=== PATIENT | female | born 1985 | race Caucasian/White ===

== ENCOUNTER 2016-12-18 12:03 | Emergency (ER) ==
[2016-12-18 12:04] VITALS: BMI 23.6
[2016-12-18 12:17] VITALS: TEMP 97
--- NOTE | 2016-12-18 12:23 | ED.PDOC ---
General ED Provider: Dr. OC APONTE JR Chief Complaint: Tooth Problem Stated Complaint: WOKE UP THIS MORNING WITH RIGHT LOWER JAW PAIN.[ End ]1030 97.0 v84 20 97% 145/92 10/10 SALT WATER. DID NOT HELP. GUM PAIN[End]RIGHT LOWER GUM PAIN[End] Time Seen by Physician: 12:21 Mode of Arrival: Walk-In Information Source: Patient Exam Limitations: No limitations Primary Care Provider: DERIK WONG Nursing and Triage Documentation Reviewed and Agree: No Review of Systems - Review Of Systems Constitutional: Reports: No symptoms Eyes: Reports: No symptoms Ears, Nose, Mouth, Throat: Reports: Mouth pain (lower jaw buccal side at right incisorsand lateral2-3 teeth) Respiratory: Reports: No symptoms Cardiac: Reports: No symptoms GI: Reports: No symptoms : Reports: No symptoms Musculoskeletal: Reports: No symptoms Skin: Reports: No symptoms Neurological: Reports: No symptoms Endocrine: Reports: No symptoms Hematologic/Lymphatic: Reports: No symptoms All Other Systems: Other Past Medical History - Past Medical History Endocrine: Reports: None Cardiovascular: Reports: None Respiratory: Reports: None Hematological: Reports: None Gastrointestinal: Reports: None Genitourinary: Reports: None Neuro/Psych: Reports: Depression Musculoskeletal: Reports: None Cancer: Reports: None Last Menstrual Period: 11/08 - Surgical History General Surgical History: Reports: Appendectomy (APPENDECTOMY 1995) - Family History Family History: Reports: Unknown - Social History Smoking Status: Current some day smoker Hx Substance Use: No Alcohol Screening: Occasionally - Immunizations Tetanus Shot up to Date: Yes Physical Exam - Physical Exam Appearance: Well-appearing, Thin Pain Distress: Moderate Eyes: CORTNEY, EOMI, Conjunctiva clear ENT: Ears normal, Nose normal, Erythema, Exudate Neck: Supple Respiratory: Airway patent, Breath sounds clear, Breath sounds equal, Respirations nonlabored Cardiovascular: RRR, Pulses normal, No rub, No murmur GI/: Soft, Nontender, No masses, Bowel sounds normal, No Organomegaly Musculoskeletal: Normal strength, ROM intact, No edema, No calf tenderness Skin: Warm, Dry, Normal color Neurological: Sensation intact, Motor intact, Reflexes intact, Cranial nerves intact, Alert, Oriented Psychiatric: Affect appropriate, Mood appropriate Critical Care Note - Critical Care Note Total Time (mins): 0 Course - Course Vital Signs: Temp Pulse Resp BP Pulse Ox 12/18/16 12:04 97.0 F L 84 20 145/92 H 97 Departure - Departure Time of Disposition: 12:28 Disposition: HOME SELF-CARE Discharge Problem: Toothache, Gingivitis due to dental plaque Instructions: Toothache (ED), Gingivitis (ED) Condition: Fair Pt referred to PMD for follow-up: Yes Additional Instructions: follow up with dentist as soon as possible teeth need professional cleaning dental floss may help Pennicillin antibiotic for infection Naprosyn for pain Blood pressure is elevated would have rechecked when pain is improved Prescriptions: Naproxen [Naprosyn] 500 mg PO Q12HR PRN #30 tablet PRN Reason: PAIN Penicillin V Potassium 500 mg PO QID #28 tablet Allergies/Adverse Reactions: Allergies No Known Drug Allergies Allergy (Unverified 11/26/16 10:58) Home Medications: Ambulatory Orders Sertraline HCl [Zoloft] 20 mg PO BID 11/26/16 Naproxen [Naprosyn] 500 mg PO Q12HR PRN #30 tablet 12/18/16 Penicillin V Potassium 500 mg PO QID #28 tablet 12/18/16
[2016-12-18] MEDS ORDERED: PHENERGAN 25 MG/ML VIAL IM STA (12:27)
[2016-12-18] MEDS ORDERED: TORADOL IM STA (12:27)
[2016-12-18 12:49] VITALS: BP 153/93
== END 2016-12-18 12:52 | disposition home or self-care (01) ==
LOC: ED 12:03
DX: K08.89 Other specified disorders of teeth and supporting structures (principal); K05.10 Chronic gingivitis, plaque induced; F17.210 Nicotine dependence, cigarettes, uncomplicated
CPT/HCPCS: 96372; 99282

== ENCOUNTER 2017-03-21 01:34 | Emergency (ER) ==
[2017-03-21 01:51] VITALS: BP 136/81; TEMP 99; BMI 22.4
--- NOTE | 2017-03-21 02:51 | DI ---
EXAM: Left foot, three views, 03/21/2017 HISTORY: Foot injury COMPARISON: None. FINDINGS / IMPRESSION: Normal anatomic alignment is maintained. Obliquely oriented lucency is pres ent at the distal aspect of the fifth metatarsal. Subtle cortical irregularity. This likely repres ents a grossly nondisplaced fracture site. The remaining visualized osseous structures appear intact.
--- NOTE | 2017-03-21 02:59 | ED.PDOC ---
General ED Provider: Dr. CONSUELO BUCK-ER Chief Complaint: Foot Pain/Injury Stated Complaint: i fell and hurt my foot Time Seen by Physician: 01:40 Mode of Arrival: Walk-In Information Source: Patient Exam Limitations: No limitations Primary Care Provider: DERIK WONG Nursing and Triage Documentation Reviewed and Agree: Yes Musculoskeletal Complaint Exam - Ankle/Foot Complaint/Exam Location of Injury: Reports: Left, Foot Mechanism of Injury: Reports: Trauma Onset/Duration: 3 days Symptoms Are: Reports: Still present Onset of Pain: Reports: Immediate Initial Severity: Mild Current Severity: Mild Location: Reports: Discrete (left foot) Character: Reports: Dull, Aching, Throbbing Alleviating: Reports: None Aggravating: Reports: Movement, Weight bearing, Prolonged standing Able to Bear Weight: Yes Associated Signs and Symptoms: Reports: Swelling. Denies: Redness, Bruising, Fever, Weakness, Numbness, Tingling Gout Risk Factors: Reports: None Related Surgical History: Reports: Right Lower Extremity Findings: Present: Swelling, Ecchymosis, Abnormal contour Achilles Tendon Abnormality: No Tenderness: Present: Midfoot Differential Diagnosis: Closed Fracture, Sprain, Strain Review of Systems - Review Of Systems Constitutional: Reports: No symptoms Eyes: Reports: No symptoms Ears, Nose, Mouth, Throat: Reports: No symptoms Respiratory: Reports: No symptoms Cardiac: Reports: No symptoms GI: Reports: No symptoms : Reports: No symptoms Musculoskeletal: Reports: Joint pain, Joint swelling Skin: Reports: No symptoms Neurological: Reports: No symptoms Endocrine: Reports: No symptoms Hematologic/Lymphatic: Reports: No symptoms All Other Systems: Reviewed and Negative Past Medical History - Past Medical History Endocrine: Reports: None Cardiovascular: Reports: None Respiratory: Reports: None Hematological: Reports: None Gastrointestinal: Reports: None Genitourinary: Reports: None Neuro/Psych: Reports: Depression Musculoskeletal: Reports: None Cancer: Reports: None Last Menstrual Period: 3-4 WEEKS AGO, IS DUE TO HAVE - Surgical History General Surgical History: Reports: Appendectomy (APPENDECTOMY 1995) - Family History Family History: Reports: Unknown - Social History Smoking Status: Current every day smoker, Heavy tobacco smoker Hx Substance Use: No Alcohol Screening: Occasionally Lives: With family - Immunizations Tetanus Shot up to Date: Yes Physical Exam - Physical Exam Appearance: Well-appearing, No pain distress, Well-nourished Pain Distress: Mild Eyes: CORTNEY, EOMI, Conjunctiva clear ENT: Ears normal, Nose normal, Oropharynx normal Neck: Supple Respiratory: Airway patent, Breath sounds clear, Breath sounds equal, Respirations nonlabored Cardiovascular: RRR, Pulses normal, No rub, No murmur GI/: Soft, Nontender, No masses, Bowel sounds normal, No Organomegaly Musculoskeletal: Normal strength, ROM intact, No edema, No calf tenderness, Limited ROM Skin: Warm, Dry, Normal color Neurological: Sensation intact, Motor intact, Reflexes intact, Cranial nerves intact, Alert, Oriented Psychiatric: Affect appropriate, Mood appropriate Interpretation - Radiology Interpretation Radiology Interpretation By: Radiologist Radiology Results: Positive Critical Care Note - Critical Care Note Total Time (mins): 0 Course - Course Orders, Labs, Meds: Orders Category Date Time Status Cast shoe [ED SPLINT APPLICATION] .ONCE EMERGENCY 03/21/17 02:55 Active ED NORIS WRAP .ONCE EMERGENCY 03/21/17 02:55 Active ED CRUTCHES .ONCE EMERGENCY 03/21/17 02:55 Active FOOT, LEFT 3 VIEWS Stat RADS 03/21/17 01:59 Completed Vital Signs: Temp Pulse Resp BP Pulse Ox 03/21/17 01:35 99 F 106 H 18 136/81 99 Departure - Departure Time of Disposition: 02:59 Disposition: HOME SELF-CARE Discharge Problem: Metatarsal fracture Qualifiers: Encounter type: initial encounter Metatarsal bone: fifth Fracture type: closed Fracture alignment: nondisplaced Laterality: left Qualifier Code: (S92.355A) Nondisplaced fracture of fifth metatarsal bone, left foot, initial encounter for closed fracture Instructions: Foot Fracture in Adults (ED) Condition: Good Pt referred to PMD for follow-up: Yes Additional Instructions: use crutches--nonweightbearing---norco 5mg q 6hrs prn pain #15--f/u with ortho clinic on thursday Allergies/Adverse Reactions: Allergies No Known Drug Allergies Allergy (Verified 03/21/17 01:47) Home Medications: Ambulatory Orders Naproxen [Naprosyn] 500 mg PO Q12HR PRN #30 tablet 12/18/16 Disposition Discussed With: Patient
== END 2017-03-21 03:20 | disposition home or self-care (01) ==
LOC: ED 01:34
DX: S92.355A Nondisplaced fracture of fifth metatarsal bone, left foot, initial encounter for closed fracture (principal); W19.XXXA Unspecified fall, initial encounter; F17.210 Nicotine dependence, cigarettes, uncomplicated
CPT/HCPCS: 99283

== ENCOUNTER 2017-11-25 19:30 | Emergency (ER) ==
[2017-11-25 19:35] VITALS: BP 131/89; TEMP 99.2; BMI 23.8
--- NOTE | 2017-11-25 19:53 | ED.PDOC ---
General ED Provider: Dr. JUNE HOBSON Chief Complaint: Neck Pain Non-Injury Stated Complaint: 3 day history of jaw pain, Painful to eat. No sore throat. Time Seen by Physician: 19:55 Mode of Arrival: Walk-In Information Source: Patient Exam Limitations: No limitations Primary Care Provider: DERIK WONG Nursing and Triage Documentation Reviewed and Agree: Yes Reviewed sepsis parameters & appropriate labs ordered?: No (only pulse is elevated. ) System Inflammatory Response Syndrome: Pulse >90 BPM (Likely due to pain but no assiciated with SIRS since has normal RR and Temperature) Sepsis Protocol: For patient's 13 years and over: Temp is 96.8 and below OR 101 and greater Pulse >90 BPM Resp >20/minute Acutely Altered Mental Status Are patient's symptoms suggestive of a new infection, such as: -Pneumonia -Skin, Soft Tissue -Endocarditis -UTI -Bone, Joint Infection -Implantable Device -Acute Abdominal Infection -Wound Infection -Meningitis -Blood Stream Catheter Infection -Unknown EENT Complaint Exam - Dental/Oral Complaint/Exam Mechanism of Injury: No known trauma Onset/Duration: 3 days Symptoms Are: Still present Timing: Constant Initial Severity: Moderate Current Severity: Severe Location: Front teeth and chin Aggravating: Reports: Cold, Chewing Alleviating: Reports: None Associated Signs and Symptoms: Reports: Foul odor, Foul taste in mouth. Denies : Swelling, Discharge Related History: Reports: Similar episode (last year ) Cardiac Risk Factors: Reports: None Dental/Oral Surgical History: Reports: None Tooth Findings: Present: Gross decay, Gross caries, Abcess Cervical Lymphadenopathy Present: No Facial Swelling Present: Yes Bleeding Present: No Oropharynx Findings: Absent: Clots, Active bleeding Septal Hematoma: No Foreign Body Present: No Dysphagia Present: No Drooling Present: No Asymmetrical Tonsillar Swelling Present: No Uvula Midline: Yes Letitia-tonsillar Fluctuence: No Trismus Present: No Palatal Petechiae Present: No Scarlatinaform Rash Present: No Lesions: Absent: Lip, Gums, Tongue, Buccal Mucosa, Pharynx Exanthem: Absent: Lip, Gums, Tongue, Buccal Mucosa, Pharynx Vesicles: Absent: Lip, Gums, Tongue, Buccal Mucosa, Pharynx Teeth Picture: 1 - Gross decay Differential Diagnoses: Dental Abcess, Dental Caries Review of Systems - Review Of Systems Constitutional: Reports: No symptoms Eyes: Reports: No symptoms Ears, Nose, Mouth, Throat: Reports: Mouth pain, Loose teeth Respiratory: Reports: No symptoms Cardiac: Reports: No symptoms GI: Reports: No symptoms : Reports: No symptoms Musculoskeletal: Reports: No symptoms Skin: Reports: No symptoms Neurological: Reports: No symptoms Endocrine: Reports: No symptoms Hematologic/Lymphatic: Reports: No symptoms All Other Systems: Reviewed and Negative Past Medical History - Past Medical History Endocrine: Reports: None Cardiovascular: Reports: None Respiratory: Reports: None Hematological: Reports: None Gastrointestinal: Reports: None Genitourinary: Reports: None Neuro/Psych: Reports: Depression Musculoskeletal: Reports: None Cancer: Reports: None Last Menstrual Period: LAST MONTH - Surgical History General Surgical History: Reports: Appendectomy (APPENDECTOMY 1995) - Family History Family History: Reports: Unknown - Social History Smoking Status: Current every day smoker, Heavy tobacco smoker Hx Substance Use: No Alcohol Screening: Occasionally - Immunizations Tetanus Shot up to Date: Yes Physical Exam - Physical Exam Appearance: Ill-appearing Ill-appearing: Mild Pain Distress: Severe Eyes: CORTNEY, EOMI, Conjunctiva clear ENT: Ears normal, Nose normal, Oropharynx normal Neck: Supple Respiratory: Airway patent, Breath sounds clear, Breath sounds equal, Respirations nonlabored Cardiovascular: Tachycardia Neurological: Alert, Oriented Psychiatric: Anxious Critical Care Note - Critical Care Note Total Time (mins): 0 Course - Course Vital Signs: Temp Pulse Resp BP Pulse Ox 11/25/17 19:31 99.2 F 128 H 20 131/89 99 Departure - Departure Time of Disposition: 19:55 Disposition: HOME SELF-CARE Discharge Problem: Dental caries Instructions: Dental Caries (GEN) Condition: Fair Pt referred to PMD for follow-up: Yes Additional Instructions: Take medications as prescribed Follow up with your Dentist this week Prescriptions: Hydrocodone/Acetaminophen [Mcdonald 5-325 Tablet] 1 tab PO Q6HR PRN #12 tablet PRN Reason: PAIN Amoxicillin [Amoxil] 500 mg PO TID #30 capsule Ibuprofen [Motrin] 600 mg PO Q6H PRN #30 tablet PRN Reason: Analgesia Allergies/Adverse Reactions: Allergies No Known Drug Allergies Allergy (Verified 03/21/17 01:47) Home Medications: Ambulatory Orders Amoxicillin [Amoxil] 500 mg PO TID #30 capsule 11/25/17 Hydrocodone/Acetaminophen [Mcdonald 5-325 Tablet] 1 tab PO Q6HR PRN #12 tablet 02/07 Ibuprofen [Motrin] 600 mg PO Q6H PRN #30 tablet 11/25/17 Disposition Discussed With: Patient
== END 2017-11-25 20:00 | disposition home or self-care (01) ==
LOC: ED 19:30
DX: K02.7 Dental root caries (principal); F17.210 Nicotine dependence, cigarettes, uncomplicated
CPT/HCPCS: 99282

== ENCOUNTER 2018-05-01 13:05 | Emergency (ER) | payer OTHER ==
[2018-05-01 13:19] VITALS: BP 138/88; TEMP 97.8; BMI 22.9
--- NOTE | 2018-05-01 13:37 | ED.PDOC ---
General ED Provider: Dr. CONSUELO RENE Chief Complaint: Toe Pain/Injury Stated Complaint: CC: Pain Lt Foot-2nd toe pain. HPI: Got up out of bed night and stubbed her Rt Foot and 2nd toe.Resulted in severe pain. No deformity noted. Ambulates but is painful. Previous injury Lt foot last year. Denies other complaints. Time Seen by Physician: 13:15 Mode of Arrival: Walk-In Information Source: Patient Exam Limitations: No limitations Primary Care Provider: DERIK WONG Nursing and Triage Documentation Reviewed and Agree: Yes Reviewed sepsis parameters & appropriate labs ordered?: Yes System Inflammatory Response Syndrome: Not Applicable Sepsis Protocol: For patient's 13 years and over: Temp is 96.8 and below OR 101 and greater Pulse >90 BPM Resp >20/minute Acutely Altered Mental Status Are patient's symptoms suggestive of a new infection, such as: -Pneumonia -Skin, Soft Tissue -Endocarditis -UTI -Bone, Joint Infection -Implantable Device -Acute Abdominal Infection -Wound Infection -Meningitis -Blood Stream Catheter Infection -Unknown Musculoskeletal Complaint Exam - Ankle/Foot Complaint/Exam Location of Injury: Reports: Toe #2, Toe #3 Mechanism of Injury: Reports: Trauma Onset/Duration: Earlier this morning Symptoms Are: Reports: Still present Onset of Pain: Reports: Immediate Initial Severity: Severe Current Severity: Moderate Location: Reports: Discrete Character: Reports: Sharp, Aching, Throbbing Alleviating: Reports: Rest Aggravating: Reports: Movement Able to Bear Weight: Yes Associated Signs and Symptoms: Reports: Bruising Gout Risk Factors: Reports: None Lower Extremity Findings: Present: Ecchymosis (over MTP joint 2nd-4th ) Review of Systems - Review Of Systems Constitutional: Reports: No symptoms Eyes: Reports: No symptoms Ears, Nose, Mouth, Throat: Reports: No symptoms Respiratory: Reports: No symptoms Cardiac: Reports: No symptoms GI: Reports: No symptoms : Reports: No symptoms Musculoskeletal: Reports: No symptoms, Joint pain Skin: Reports: No symptoms Neurological: Reports: No symptoms Endocrine: Reports: No symptoms Hematologic/Lymphatic: Reports: No symptoms All Other Systems: Reviewed and Negative Past Medical History - Past Medical History Previously Healthy: Yes Endocrine: Reports: None Cardiovascular: Reports: None Respiratory: Reports: None Hematological: Reports: None Gastrointestinal: Reports: None Genitourinary: Reports: None Neuro/Psych: Reports: Depression Musculoskeletal: Reports: None, Joint Pain Cancer: Reports: None Last Menstrual Period: on - Surgical History General Surgical History: Reports: Appendectomy (APPENDECTOMY 1995) - Family History Family History: Reports: Unknown - Social History Smoking Status: Current every day smoker Hx Substance Use: No Alcohol Screening: None - Immunizations Tetanus Shot up to Date: Yes Physical Exam - Physical Exam Appearance: Well-appearing, Well-nourished, Thin Ill-appearing: None Pain Distress: Moderate Eyes: CORTNEY, EOMI, Conjunctiva clear ENT: Ears normal, Nose normal, Oropharynx normal Respiratory: Airway patent, Breath sounds clear, Breath sounds equal, Respirations nonlabored Cardiovascular: RRR, Pulses normal, No rub, No murmur GI/: Soft, Nontender, No masses, Bowel sounds normal, No Organomegaly Musculoskeletal: Normal strength, ROM intact (painful movement of 2nd and 3rd toes . Ecchymoses over the involved toes. Ankle wnl), No edema, No calf tenderness Skin: Warm, Dry, Normal color Neurological: Sensation intact, Motor intact, Reflexes intact, Cranial nerves intact, Alert, Oriented Psychiatric: Affect appropriate, Mood appropriate Critical Care Note - Critical Care Note Total Time (mins): 0 Course - Course Orders, Labs, Meds: Orders Category Date Time Status Splint [ED SPLINT APPLICATION] .ONCE EMERGENCY 05/01/18 14:28 Active Ketorolac Tromethamine [Toradol] MEDS 05/01/18 14:05 Discontinued 30 mg IM ONCE STA FOOT, RIGHT 3 VIEWS Stat RADS 05/01/18 13:36 Taken Medications Discontinued Medications Generic Name Dose Route Start Last Admin Trade Name Julieta PRN Reason Stop Dose Admin Ketorolac Tromethamine 30 mg 05/01/18 14:05 05/01/18 14:11 Toradol IM 05/01/18 14:06 30 mg ONCE STA Administration Vital Signs: Temp Pulse Resp BP Pulse Ox 05/01/18 13:07 97.8 F 94 H 20 138/88 97 Departure - Departure Time of Disposition: 14:00 Disposition: HOME SELF-CARE Discharge Problem: Contusion of second toe of right foot Instructions: Foot Contusion (ED) Condition: Good Pt referred to PMD for follow-up: Yes (pcp) IPMP verified?: No Additional Instructions: Budddy splint Ice , Elevate, Pain meds as directed return if worsens Follow up pcp next week Allergies/Adverse Reactions: Allergies No Known Drug Allergies Allergy (Verified 03/21/17 01:47) Home Medications: Ambulatory Orders Ibuprofen 600 mg PO QID #20 tablet 05/01/18 Disposition Discussed With: Patient, Family
[2018-05-01] MEDS ORDERED: TORADOL IM STA (14:05)
--- NOTE | 2018-05-02 20:31 | DI ---
EXAM: Three views of the right foot HISTORY: Pain after trauma. COMPARISON: None FINDINGS: There is no cortical irregularity or displaced fracture of the right foot. There is no lyt ic or blastic lesion. The joint spaces are maintained. The arch is maintained. The limited views of the ankle are normal. IMPRESSION: No acute abnormality of the right foot.
== END 2018-05-01 14:50 | disposition home or self-care (01) ==
LOC: ED 13:05
DX: S90.121A Contusion of right lesser toe(s) without damage to nail, initial encounter (principal); W22.8XXA Striking against or struck by other objects, initial encounter; F17.210 Nicotine dependence, cigarettes, uncomplicated
CPT/HCPCS: 96372; 99282

== ENCOUNTER 2018-05-10 15:26 | Outpatient (CLI) | END 2018-05-10 15:27 | disposition home or self-care (01) | LOC: LAB 15:26 | PROVIDERS: ATTEND Family Medicine | DX: Z00.00 Encounter for general adult medical examination without abnormal findings (principal); F31.9 Bipolar disorder, unspecified; R00.0 Tachycardia, unspecified; G56.01 Carpal tunnel syndrome, right upper limb | CPT/HCPCS: 36415; 80053; 81001; 84439; 84443; 85025 ==

== ENCOUNTER 2018-05-14 13:32 | Outpatient (CLI) ==
--- NOTE | 2018-05-14 15:07 | DI ---
EXAM: Three views of the right hand. History: Right hand pain. Comparison: Right hand radiograph 02/28/2016 Findings: No acute fracture or dislocation. No abnormal calcifications or radiopaque foreign bodies . Joint spaces are preserved. No erosive osseous changes. Stable benign sclerotic lesion within th e second metacarpal head and within distal phalanx of the fourth digit. Impression: No acute findings and no arthritis.
--- NOTE | 2018-05-14 15:09 | DI ---
EXAM: Three views of the left hand. History: Left hand pain. Comparison: Left hand radiograph 02/28/2016 Findings: No acute fracture or dislocation. No abnormal calcifications or radiopaque foreign bodies . Joint spaces are preserved. No erosive osseous changes. Impression: Unremarkable exam
--- NOTE | 2018-05-14 15:10 | DI ---
EXAM: Three views of the right toes History: Right toe pain. Comparison: Right foot radiograph 05/01/2018 Findings / impression: Seen only on the frontal projection there is a small ossific density involving the PIP joint of the second digit which could represent age indeterminate chip/avulsion fracture or small osteophytes. Correlate with point tenderness. No other abnormalities are seen.
== END 2018-05-14 13:33 | disposition home or self-care (01) ==
LOC: RAD 13:32
PROVIDERS: ATTEND Family Medicine
DX: M25.542 Pain in joints of left hand (principal); M25.541 Pain in joints of right hand; M79.676 Pain in unspecified toe(s)

== ENCOUNTER 2018-07-23 10:05 | Emergency (ER) ==
[2018-07-23 10:11] VITALS: BP 122/82; TEMP 97.7; BMI 23.1
--- NOTE | 2018-07-23 10:21 | ED.PDOC ---
General ED Provider: Dr. KEILA BERG Chief Complaint: Bite Stated Complaint: BEE/WASP STING ON PT'S BACK Time Seen by Physician: 10:10 (SEE) Mode of Arrival: Walk-In Information Source: Patient Exam Limitations: No limitations Primary Care Provider: DERIK WONG Nursing and Triage Documentation Reviewed and Agree: Yes Does patient meet sepsis criteria?: No If yes, has appropriate treatment been initiated?: No System Inflammatory Response Syndrome: Not Applicable (SEE PHOTOS, SEEN WITH LIZZY THORNTON RN AT ALL TIMES) Sepsis Protocol: For patient's 13 years and over: Temp is 96.8 and below OR 101 and greater Pulse >90 BPM Resp >20/minute Acutely Altered Mental Status Are patient's symptoms suggestive of a new infection, such as: -Pneumonia -Skin, Soft Tissue -Endocarditis -UTI -Bone, Joint Infection -Implantable Device -Acute Abdominal Infection -Wound Infection -Meningitis -Blood Stream Catheter Infection -Unknown Review of Systems - Review Of Systems Constitutional: Reports: No symptoms Eyes: Reports: No symptoms Ears, Nose, Mouth, Throat: Reports: No symptoms Respiratory: Reports: No symptoms Cardiac: Reports: No symptoms GI: Reports: No symptoms : Reports: No symptoms Musculoskeletal: Reports: No symptoms Skin: Reports: Other (SEE PHOTO) Neurological: Reports: No symptoms Endocrine: Reports: No symptoms Hematologic/Lymphatic: Reports: No symptoms All Other Systems: Reviewed and Negative Past Medical History - Past Medical History Previously Healthy: Yes Endocrine: Reports: None Cardiovascular: Reports: None Respiratory: Reports: None Hematological: Reports: None Gastrointestinal: Reports: None Genitourinary: Reports: None Neuro/Psych: Reports: Depression Musculoskeletal: Reports: None, Joint Pain Cancer: Reports: None Last Menstrual Period: now - Surgical History General Surgical History: Reports: Appendectomy (APPENDECTOMY 1995) - Family History Family History: Reports: Unknown - Social History Smoking Status: Current every day smoker, Light tobacco smoker Hx Substance Use: No Alcohol Screening: None - Immunizations Tetanus Shot up to Date: No Physical Exam - Physical Exam Appearance: Well-appearing, No pain distress, Well-nourished Eyes: CORTNEY, EOMI, Conjunctiva clear ENT: Ears normal, Nose normal, Oropharynx normal Respiratory: Airway patent, Breath sounds clear, Breath sounds equal, Respirations nonlabored Cardiovascular: RRR, Pulses normal, No rub, No murmur GI/: Soft, Nontender, No masses, Bowel sounds normal, No Organomegaly Musculoskeletal: Normal strength, ROM intact, No edema, No calf tenderness Skin: Warm, Dry (WASP STING BACK(SEE PHOTO)) Neurological: Sensation intact, Motor intact, Reflexes intact, Cranial nerves intact, Alert, Oriented Psychiatric: Affect appropriate, Mood appropriate Critical Care Note - Critical Care Note Total Time (mins): 0 Course - Course Vital Signs: Temp Pulse Resp BP Pulse Ox 07/23/18 10:05 97.7 F 86 16 122/82 97 Departure - Departure Time of Disposition: 10:22 Disposition: HOME SELF-CARE Discharge Problem: Bee sting Qualifiers: Encounter type: initial encounter Injury intent: undetermined intent Qualified Code(s): T63.444A - Toxic effect of venom of bees, undetermined, initial encounter Instructions: Insect Bite or Sting (ED) Condition: Good Pt referred to PMD for follow-up: Yes IPMP verified?: No Additional Instructions: Please call your Family Physician as soon as possible to schedule a follow-up appointment. Allergies/Adverse Reactions: Allergies No Known Drug Allergies Allergy (Verified 07/23/18 10:12) Home Medications: Ambulatory Orders 1 [Unobtainable] 07/23/18 Disposition Discussed With: Patient, Family
[2018-07-23] MEDS ORDERED: PREDNISONE PO STA (10:24)
[2018-07-23] MEDS ORDERED: BENADRYL PO STA (10:25)
== END 2018-07-23 11:00 | disposition home or self-care (01) ==
LOC: ED 10:05
DX: T63.461A Toxic effect of venom of wasps, accidental (unintentional), initial encounter (principal); F17.210 Nicotine dependence, cigarettes, uncomplicated
CPT/HCPCS: 99282

== ENCOUNTER 2018-08-21 23:13 | Emergency (ER) ==
[2018-08-21 23:56] VITALS: BP 108/74; TEMP 98.1; BMI 22.8
--- NOTE | 2018-08-21 23:58 | ED.PDOC ---
General ED Provider: Dr. JUNE HOBSON Chief Complaint: Fall Stated Complaint: Patient is a 32 year old female who comes to the ER with complaints of tripping on dog in house last night, She fell backwards between the coffee table and couch but did not hit the floor. She states that the pain is worse today with movment. Has not taken anything for it. Time Seen by Physician: 23:50 Mode of Arrival: Walk-In Information Source: Patient, Family Primary Care Provider: DERIK WONG Nursing and Triage Documentation Reviewed and Agree: Yes Does patient meet sepsis criteria?: No System Inflammatory Response Syndrome: Not Applicable Sepsis Protocol: For patient's 13 years and over: Temp is 96.8 and below OR 101 and greater Pulse >90 BPM Resp >20/minute Acutely Altered Mental Status Are patient's symptoms suggestive of a new infection, such as: -Pneumonia -Skin, Soft Tissue -Endocarditis -UTI -Bone, Joint Infection -Implantable Device -Acute Abdominal Infection -Wound Infection -Meningitis -Blood Stream Catheter Infection -Unknown Musculoskeletal Complaint Exam - Back Pain Complaint/Exam Mechanism of Injury: Reports: Trauma Onset/Duration: 1 day Symptoms Are: Still present Timing: Constant Initial Severity: Moderate Current Severity: Moderate Location: Reports: Diffuse Character: Reports: Aching, Throbbing Aggravating: Reports: Movements, Bending Alleviating: Reports: None Associated Signs and Symptoms: Reports: Pain with weight bearing Paraspinal Muscle Spasm: Yes Scoliosis: No Lordosis: No Kyphosis: No SLR Test: Right Negative, Left Negative Hip Motion Testing Pain: Right Negative, Left Negative Focal Weakness: Present: None Focal Sensory Loss: Present: None Gait: Present: Normal (but with atalgia ) Back Picture: 1 - pain and tendeness to palpation Differential Diagnoses: Strain, Sprain Review of Systems - Review Of Systems Constitutional: Reports: No symptoms Eyes: Reports: No symptoms Ears, Nose, Mouth, Throat: Reports: No symptoms Respiratory: Reports: No symptoms Cardiac: Reports: No symptoms GI: Reports: No symptoms Musculoskeletal: Reports: Back pain, Joint pain, Muscle pain, Muscle stiffness Skin: Reports: Lesions Neurological: Reports: Anxiety Endocrine: Reports: No symptoms Hematologic/Lymphatic: Reports: No symptoms All Other Systems: Reviewed and Negative Past Medical History - Past Medical History Previously Healthy: Yes Endocrine: Reports: None Cardiovascular: Reports: None Respiratory: Reports: None Hematological: Reports: None Gastrointestinal: Reports: None Genitourinary: Reports: None Neuro/Psych: Reports: Depression Musculoskeletal: Reports: None, Joint Pain Cancer: Reports: None Last Menstrual Period: now - Surgical History General Surgical History: Reports: Appendectomy (APPENDECTOMY 1995) - Family History Family History: Reports: Unknown - Social History Smoking Status: Current every day smoker, Light tobacco smoker Hx Substance Use: No Alcohol Screening: None - Immunizations Tetanus Shot up to Date: No (unsure) Physical Exam - Physical Exam Appearance: Ill-appearing Ill-appearing: Mild Pain Distress: Severe Neck: Supple Respiratory: Airway patent, Breath sounds clear, Breath sounds equal, Respirations nonlabored Cardiovascular: RRR Musculoskeletal: Limited ROM (on the left hip due to pain ) Skin: Warm, Dry, Normal color Neurological: Sensation intact, Motor intact, Reflexes intact, Cranial nerves intact, Alert, Oriented Psychiatric: Anxious Interpretation - Radiology Interpretation Radiology Interpretation By: ED Physician Radiology Results: Negative Exam Interpreted: Other (lumber and hip x ray ) Re-Evaluation - Re-Evaluation Time of Re-Evaluation: 00:30 Status: Improved Critical Care Note - Critical Care Note Total Time (mins): 0 Course - Course Orders, Labs, Meds: Orders Category Date Time Status Ketorolac Tromethamine [Toradol] MEDS 08/22/18 00:01 Discontinued 60 mg IM ONCE STA HIP, LEFT 2 VIEWS Stat RADS 08/21/18 23:51 Taken LUMBAR SPINE, MIN 4 VIEWS Stat RADS 08/21/18 23:51 Taken PELVIS 1 OR 2 VIEWS Stat RADS 08/21/18 23:52 Taken Medications Discontinued Medications Generic Name Dose Route Start Last Admin Trade Name Freq PRN Reason Stop Dose Admin Ketorolac Tromethamine 60 mg 08/22/18 00:01 08/22/18 00:06 Toradol IM 08/22/18 00:02 60 mg ONCE STA Administration Vital Signs: Temp Pulse Resp BP Pulse Ox 08/21/18 23:14 98.1 F 95 H 20 108/74 96 Departure - Departure Time of Disposition: 00:45 Disposition: HOME SELF-CARE Discharge Problem: Low back sprain Qualifiers: Encounter type: initial encounter Qualified Code(s): S33.5XXA - Sprain of ligaments of lumbar spine, initial encounter Hip sprain Qualifiers: Encounter type: initial encounter Laterality: left Qualified Code(s): S73.102A - Unspecified sprain of left hip, initial encounter Instructions: Low Back Strain (ED), Hip Sprain (ED) Condition: Good Pt referred to PMD for follow-up: Yes IPMP verified?: No Additional Instructions: Take pain medications as needed Follow up with PCP In 3 days Prescriptions: Ibuprofen [Motrin] 600 mg PO Q6H PRN #30 tablet PRN Reason: Analgesia Allergies/Adverse Reactions: Allergies No Known Drug Allergies Allergy (Verified 08/21/18 23:25) Home Medications: Ambulatory Orders Paroxetine HCl [Paxil] 10 mg PO DAILY 08/21/18 Ibuprofen [Motrin] 600 mg PO Q6H PRN #30 tablet 08/22/18 Disposition Discussed With: Patient, Family
[2018-08-22] MEDS ORDERED: TORADOL IM STA (00:01)
--- NOTE | 2018-08-22 06:28 | DI ---
EXAM: Pelvis one-view HISTORY: Fall with pelvic pain COMPARISON: None FINDINGS: Sacroiliac joints intact. Sacral arcuate intact. Suggestion of transitional vertebral an atomy at the lumbosacral junction. No fracture or dislocation. Hip joints are normal. Small sclerot ic focus in the right proximal femur, likely bone island. No focal soft tissue abnormality. IMPERSSION: No fracture or dislocation.
--- NOTE | 2018-08-22 06:30 | DI ---
EXAM: Left hip two-view HISTORY: Fall with left hip pain COMPARISON: None FINDINGS: No fracture or dislocation. Suggestion of transitional vertebral anatomy at the lumbosacr al junction. The hip joint is normal. No focal soft tissue abnormality. IMPERSSION: No fracture or dislocation.
--- NOTE | 2018-08-22 09:02 | DI ---
EXAM: Lumbar spine five views HISTORY: Fall with back pain COMPARISON: None TECHNIQUE: Five views lumbar spine were performed FINDINGS: Sacroiliac joints intact. Sacral arcuate intact. Suggestion of transitional vertebral an atomy at the lumbosacral junction. Vertebral bodies normal height. No fracture. No subluxation. I ntervertebral disc spaces maintained. IMPRESSION: No fracture or subluxation.
== END 2018-08-22 00:50 | disposition home or self-care (01) ==
LOC: ED 23:13
DX: S33.5XXA Sprain of ligaments of lumbar spine, initial encounter (principal); S73.102A Unspecified sprain of left hip, initial encounter; W01.0XXA Fall on same level from slipping, tripping and stumbling without subsequent striking against object, initial encounter; F17.210 Nicotine dependence, cigarettes, uncomplicated
CPT/HCPCS: 96372; 99282

== ENCOUNTER 2018-11-24 20:05 | Emergency (ER) ==
[2018-11-24 20:11] VITALS: BP 120/79; TEMP 97.7; BMI 23.6
[2018-11-24] MEDS ORDERED: ZOFRAN ODT PO STA (20:28)
--- NOTE | 2018-11-24 20:33 | ED.PDOC ---
General ED Provider: Dr. JUNE HOBSON Chief Complaint: Abdominal Pain Stated Complaint: Patient states she has had upper abdominal pain for one day. States last bowel movement was over one week ago. ( not unsual for her) Time Seen by Physician: 20:25 Mode of Arrival: Walk-In Information Source: Patient Exam Limitations: No limitations Primary Care Provider: DERIK WONG Nursing and Triage Documentation Reviewed and Agree: Yes Does patient meet sepsis criteria?: No System Inflammatory Response Syndrome: Not Applicable Sepsis Protocol: For patient's 13 years and over: Temp is 96.8 and below OR 101 and greater Pulse >90 BPM Resp >20/minute Acutely Altered Mental Status Are patient's symptoms suggestive of a new infection, such as: -Pneumonia -Skin, Soft Tissue -Endocarditis -UTI -Bone, Joint Infection -Implantable Device -Acute Abdominal Infection -Wound Infection -Meningitis -Blood Stream Catheter Infection -Unknown GI Complaint Exam - Abdominal Pain Complaint/Exam Onset: Gradual Duration: 1 day Symptoms Are: Still present Timing: Constant Initial Severity: Moderate Current Severity: Moderate Location of Pain: RUQ, LUQ Radiates To: Denies: Chest, Back, Flank, LLQ, RLQ, Inguinal Character: Reports: Dull, Aching Aggravating: Reports: None Alleviating: Reports: None Associated Signs and Symptoms: Reports: Constipation, Nausea. Denies: Back pain , Vomiting, Diarrhea AAA Risk Factors: Reports: None Cardiac Risk Factors: Reports: None Ovarian Torsion Risk Factors: Reports: Tubal ligation Related Surgical History: Reports: Appendectomy, Tubal ligation Abdominal Findings: Absent: Pulsatile mass, Abdominal distention, Unequal femoral pulses, Rebound tenderness, Peritoneal signs, McBurney's Point tender, CVA Tenderness, Hernia, Inguinal swelling Differential Diagnoses: Constipation, PUD, UTI Review of Systems - Review Of Systems Constitutional: Reports: No symptoms Eyes: Reports: No symptoms Ears, Nose, Mouth, Throat: Reports: No symptoms Respiratory: Reports: No symptoms Cardiac: Reports: No symptoms GI: Reports: Abdominal pain, Constipated, Nausea. Denies: Vomiting : Reports: No symptoms Musculoskeletal: Reports: No symptoms Skin: Reports: No symptoms Neurological: Reports: No symptoms Endocrine: Reports: No symptoms Hematologic/Lymphatic: Reports: No symptoms All Other Systems: Reviewed and Negative Past Medical History - Past Medical History Previously Healthy: Yes Endocrine: Reports: None Cardiovascular: Reports: None Respiratory: Reports: None Hematological: Reports: None Gastrointestinal: Reports: None Genitourinary: Reports: None Neuro/Psych: Reports: Depression Musculoskeletal: Reports: Joint Pain Cancer: Reports: None Last Menstrual Period: none - Surgical History General Surgical History: Reports: Tubal ligation, Appendectomy (APPENDECTOMY 1995) - Family History Family History: Reports: Unknown - Social History Smoking Status: Current every day smoker, Light tobacco smoker Hx Substance Use: No Alcohol Screening: Occasionally - Immunizations Tetanus Shot up to Date: Yes Physical Exam - Physical Exam Appearance: Well-appearing, Well-nourished Pain Distress: Mild Eyes: CORTNEY, EOMI, Conjunctiva clear ENT: Ears normal, Nose normal, Oropharynx normal Respiratory: Airway patent, Breath sounds clear, Breath sounds equal, Respirations nonlabored Cardiovascular: RRR, Pulses normal, No rub, No murmur GI/: Soft, No masses, Bowel sounds normal, No Organomegaly, Tender (mild upper abdominal tenderness no rebound. ) Musculoskeletal: Normal strength, ROM intact, No edema, No calf tenderness Skin: Warm, Dry, Normal color Neurological: Sensation intact, Motor intact, Reflexes intact, Cranial nerves intact, Alert, Oriented Psychiatric: Affect appropriate, Mood appropriate Interpretation - Radiology Interpretation Radiology Interpretation By: Radiologist Radiology Results: Negative (for obstruction) Exam Interpreted: Other (KuB) Re-Evaluation - Re-Evaluation Time of Re-Evaluation: 21:00 Status: Improved Pain Level: <5 Appearance: NAD Lungs: Clear Critical Care Note - Critical Care Note Total Time (mins): 0 Course - Course Hematology/Chemistry: 11/24/18 20:41 11/24/18 20:41 Orders, Labs, Meds: Lab Review 11/24/18 11/24/18 11/24/18 20:12 20:41 20:41 WBC 7.66 RBC 4.24 Hgb 12.7 Hct 38.0 MCV 89.6 MCH 30.0 MCHC 33.4 RDW Coeff of Francois 13.2 Plt Count 172 Immature Gran % (Auto) 0.3 Neut % (Auto) 62.0 Lymph % (Auto) 28.6 [place] % (Auto) 6.7 Eos % (Auto) 1.6 Baso % (Auto) 0.8 Immature Gran # (Auto) 0.0 Neut # (Auto) 4.8 Lymph # (Auto) 2.2 [place] # (Auto) 0.5 Eos # (Auto) 0.1 Baso # (Auto) 0.1 Sodium 137.4 Potassium 3.58 Chloride 101.2 Carbon Dioxide 28.0 Anion Gap 11.78 BUN 15.6 Creatinine 0.73 Estimated GFR (MDRD) 91.00 BUN/Creatinine Ratio 21.36 Glucose 92.0 Calcium 9.17 Total Bilirubin 0.29 AST 20.8 ALT 13.9 Alkaline Phosphatase 69.0 Total Protein 7.80 Albumin 4.70 Globulin 3.10 Albumin/Globulin Ratio 1.51 Amylase 74.5 Lipase 174.6 Urine Color Yellow Urine Clarity Cloudy Urine pH 5.5 Ur Specific [place] >=1.030 Urine Protein Negative Urine Glucose (UA) Negative Urine Ketones Negative Urine Blood 1+ Urine Nitrite Positive Urine Bilirubin Negative Urine Urobilinogen 0.2 Ur Leukocyte Esterase 1+ Urine Microscopic RBC 5-10 Urine Microscopic WBC 20-30 Ur Squamous Epith Cells 5-10 Ur Transition Epith Cell 2-5 Urine Bacteria 3+ Orders Category Date Time Status AMYLASE Stat LAB 11/24/18 20:41 Completed CBC W/ AUTO DIFF Stat LAB 11/24/18 20:41 Completed COMPREHENSIVE METABOLIC PANEL Stat LAB 11/24/18 20:41 Completed LIPASE Stat LAB 11/24/18 20:41 Completed URINALYSIS C & S IF INDICATED Stat LAB 11/24/18 20:12 Completed URINE CULTURE Stat LAB 11/24/18 20:12 Received KUB [ABDOMEN 1 VIEW] Stat RADS 11/24/18 20:30 Completed Vital Signs: Temp Pulse Resp BP Pulse Ox 11/24/18 20:05 97.7 F 99 H 17 120/79 96 Departure - Departure Time of Disposition: 21:13 Disposition: HOME SELF-CARE Discharge Problem: Abdominal pain Constipation Qualifiers: Constipation type: slow transit constipation Qualified Code(s): K59.01 - Slow transit constipation UTI (urinary tract infection) Qualifiers: Urinary tract infection type: acute cystitis Hematuria presence: without hematuria Qualified Code(s): N30.00 - Acute cystitis without hematuria Instructions: Constipation (ED), Urinary Tract Infection in Women (DC) Condition: Fair Pt referred to PMD for follow-up: Yes IPMP verified?: No Additional Instructions: Push fluids increase fiber in your diet Take miralx as needed for constipation. Prescriptions: Nitrofurantoin 100 gm MC BID #10 powder Ondansetron HCl [Zofran Tab] 4 mg PO Q8H PRN #14 tablet PRN Reason: Nausea / Vomiting Polyethylene Glycol 3350 [Miralax] 17 gm PO DAILY #450 powd.pack Allergies/Adverse Reactions: Allergies No Known Drug Allergies Allergy (Verified 11/24/18 20:08) Home Medications: Ambulatory Orders Nitrofurantoin 100 gm MC BID #10 powder 11/24/18 Ondansetron HCl [Zofran Tab] 4 mg PO Q8H PRN #14 tablet 11/24/18 Polyethylene Glycol 3350 [Miralax] 17 gm PO DAILY #450 powd.pack 11/24/18 Disposition Discussed With: Patient, Family
--- NOTE | 2018-11-24 20:53 | DI ---
EXAM: Single view of the abdomen. History: Abdominal pain with nausea. Findings: Mildly distended transverse colon but no evidence for bowel obstruction. No free intraper itoneal air. No acute osseous abnormalities. No calcifications are seen projecting over the renal s hadows. A few small pelvic calcifications are nonspecific but probably represent phleboliths. Impression: Mild ileus of the transverse colon. No evidence for bowel obstruction
== END 2018-11-24 21:20 | disposition home or self-care (01) ==
LOC: ED 20:05
DX: K59.01 Slow transit constipation (principal); N30.00 Acute cystitis without hematuria; F17.210 Nicotine dependence, cigarettes, uncomplicated
CPT/HCPCS: 36415; 80053; 81001; 82150; 83690; 85025; 87086; 87186; 99283